=== PATIENT | female | born 1935 | race Caucasian/White ===

== ENCOUNTER 2019-12-06 11:02 | Emergency (ER) | payer OTHER ==
[~2019-12-06] VITALS: Ht 154.9 cm; Wt 60.3 kg
[2019-12-06] MEDS ORDERED: ZOLOFT50 MG (11:15)
[2019-12-06] MEDS ORDERED: SYNTHROID88 MCG (11:15)
[2019-12-06] MEDS ORDERED: ASPIR 8181 MG (11:15)
== END 2019-12-06 12:47 | disposition home or self-care (01) ==
LOC: ER 11:02
DX: S01.82XA Laceration with foreign body of other part of head, initial encounter (principal); S80.01XA Contusion of right knee, initial encounter; W01.198A Fall on same level from slipping, tripping and stumbling with subsequent striking against other object, initial encounter; Y93.01 Activity, walking, marching and hiking; Y92.89 Other specified places as the place of occurrence of the external cause; Y99.8 Other external cause status

== ENCOUNTER → 2024-08-24 | Emergency (ER) | payer OTHER ==
[~2024-08-24] VITALS: Ht 149.9 cm; Wt 52.6 kg
[~2024-08-24] MED LIST: ASPIR 8181 MG; DEXAMETHASONE SODIUM PHOSPHATE 4 MG/ML VIAL IM STA; DEXAMETHASONE SODIUM PHOSPHATE 4 MG/ML VIAL ONE; LIPITOR20 MG PO; MEMANTINE HCL E28 MG PO; MYRBETRIQ25 MG PO; REMINYL4 MG PO; SYNTHROID88 MCG; TIROSINT112 MCG PO; ZOLOFT100 MG PO; ZOLOFT50 MG
[2024-08-24 13:30] LABS: HEMATOCRIT 38.2 % (36.0-45.00); HEMOGLOBIN 13.3 g/dL (12.0-15.00); MEAN CORPUSCULAR HEMOGLOBIN 30.3 pg (27.00-32.0); MEAN CORPUSCULAR HGB CONC 34.8 g/dl (32.0-36.0); PLATELET COUNT 169 K/uL (150-450); RED BLOOD COUNT 4.39 M/uL (4.00-6.00); RED CELL DISTRIBUTION WIDTH 15.1 % (11.5-14.5)
[2024-08-24 13:52] LABS: ALBUMIN 3.3 gm/dL (3.4-5.0); BILIRUBIN TOTAL 0.45 mg/dL (0.3-1.2); CALCIUM 7.9 mg/dL (8.5-10.1); CREATININE SERUM 0.66 mg/dL (0.55-1.02); GFR 84.52; GLOBULINA 3.2 G/DL (2.4-3.5); POTASSIUM 3.99 mEq/L (3.5-5.1); TOTAL PROTEIN 6.5 gm/dL (6.4-8.2)
== END | disposition home or self-care (01) ==
LOC: ER 12:17
PROVIDERS: General Practice
DX: U07.1 COVID-19 (principal); G89.11 Acute pain due to trauma; R51.9 Headache, unspecified
CPT/HCPCS: 36415; 70450; 70490; 71250; 96365; 99284; J1100